=== PATIENT | female | born 1985 | race Caucasian/White ===

== ENCOUNTER 2019-06-06 04:35 | Emergency (ER) | payer SELFPAY ==
--- NOTE | 2019-06-06 05:13 | PDOC ---
History of Present Illness - General Stated Complaint: DIZZINESS Time Seen by Provider: 06/06/19 05:13 - History of Present Illness Initial Comments: 34 year old female with no PMH presenting with congestion, cough, and wheezing after her child was diagnosed with flu earlier today. She is concerned that she may have the flu as well. Her symptoms have lasted for nearly 3 days. She hast taken Motrin (last dos 2 hours prior) with good relief of her symptoms. She denies any chest pain, lightheadedness, or other symptoms. 06/06/19 06:13 Past History - Past Medical History Allergies/Adverse Reactions: Allergies Allergy/AdvReac Type Severity Reaction Status Date / Time No Known Allergies Allergy Verified 10/20/12 22:00 Home Medications: Ambulatory Orders No Home Medications 0 dose .ROUTE UTDICT 10/20/12 - Reproductive History (#): 1 Para: 0 - Psycho Social/Smoking Cessation Hx Smoking Status: No Smoking History: Never smoked Number of Cigarettes Smoked Daily: 0 Review of Systems - Review of Systems Constitutional: Yes: Fever, Loss of Appetite, Weakness. No: Chills, Diaphoresis HEENTM: No: Eye Pain, Blurred Vision, Tearing Respiratory: Yes: Cough. No: Shortness of Breath, Wheezing, Productive cough Cardiac (ROS): No: Chest Pain, Edema, Irregular Heart Rate, Chest Tightness ABD/GI: No: Constipated, Diarrhea, Nausea, Vomiting : No: Burning, Dysuria, Discharge Musculoskeletal: No: Back Pain, Joint Pain Integumentary: No: Bruising, Lesions, Lumps, Pallor Neurological: No: Headache, Numbness, Paresthesia Psychiatric: No: Anxiety, Depression Hematologic/Lymphatic: No: Anemia, Blood Clots *Physical Exam - Physical Exam General Appearance: Yes: Nourished, Appropriately Dressed. No: Apparent Distress HEENT: positive: EOMI, DEVORA, Normal Voice, TMs Normal, Pharynx Normal. negative : Normal ENT Inspection (congestion) Neck: positive: Trachea midline, Normal Thyroid, Supple. negative: Tender, Rigid Respiratory/Chest: positive: Lungs Clear, Normal Breath Sounds. negative: Chest Tender, Respiratory Distress, Accessory Muscle Use Cardiovascular: positive: Regular Rhythm, Regular Rate Gastrointestinal/Abdominal: positive: Normal Bowel Sounds, Flat, Soft. negative : Tender Lymphatic: negative: Adenopathy, Tenderness Musculoskeletal: positive: Normal Inspection. negative: Decreased Range of Motion Extremity: positive: Normal Capillary Refill, Normal Inspection, Normal Range of Motion. negative: Tender Integumentary: positive: Normal Color, Dry, Warm Neurologic: positive: Fully Oriented, Alert, Normal Mood/Affect, Normal Response , Motor Strength 5/5 Medical Decision Making - Medical Decision Making 34 year old female with no PMH presenting with flu like symptoms but flu swab negative. However, this is likely another untestable viral illness as patient is overall well appearing and there has been a short time course since onset of illness. VSS here and patient is doing well with Motrin. Will DC with Tylenol and Motrin use instructions. 06/06/19 06:43 Discharge - Discharge Information Problems reviewed: Yes Clinical Impression/Diagnosis: Congestion of nasal sinus Condition: Stable Disposition: HOME - Admission No - Follow up/Referral Referrals: [facility] [place] [Provider Group] - Patient Discharge Instructions Additional Instructions: Please take your Motrin and Tylenol every 4-6 hours as needed. Please see your PCP within one a week. Please return to the ED if you have new or worsening symptoms. - Post Discharge Activity
[2019-06-06 05:30] VITALS: BP 119/77; PULSE 100; TEMP 98.7; BMI 29.1
--- NOTE | 2019-06-06 05:34 | PDOC ---
Attending Attestation - Resident Resident Name: Meir Felix - ED Attending Attestation I have performed the following: I have examined & evaluated the patient, The case was reviewed & discussed with the resident, I agree w/resident's findings & plan - HPI HPI: 06/06/19 06:57 Pt's kids have the flu and pt thinks that she may have the flu. She is not febrile, but she has a cold and she has body aches. Pt appears well. - Physicial Exam PE: 06/06/19 06:58 Agree with resident exam Pt is achy and warm Heart and lungs clear Abd soft NT ND No flank pain, but pt complains od generalized muscle aches. Neuro intact No edema of legs HEENT normal - Medical Decision Making 06/06/19 06:58 Flu negatve Pt has a nahrn9r cold and she will be discharged home.
== END 2019-06-06 07:20 | disposition home or self-care (01) ==
LOC: JER 04:35
CPT/HCPCS: 87804; 99282-25

== ENCOUNTER 2021-07-19 21:06 | Emergency (ER) | payer OTHER ==
[2021-07-19] MEDS ORDERED: SODIUM CHLORIDE 1,000 ML IV STA (21:23)
[2021-07-19] MEDS ORDERED: ACETAMINOPHEN 1000 MG/100 ML BAG IVPB ONE (21:27)
[2021-07-19 21:35] VITALS: BP 119/73; PULSE 80; TEMP 98.7; BMI 29.3
[2021-07-19] MEDS ORDERED: ACETAMINOPHEN INJECTION 100 ML IVPB ONE (21:35)
[2021-07-19 22:12] LABS: EPITHELIAL CELLS FEW /hpf
[2021-07-19 22:15] LABS: ALBUMIN 4.1 g/dl (3.4-5.0); BILIRUBIN,TOTAL 0.6 mg/dl (0.2-1); CALCIUM 9.8 mg/dl (8.5-10); CREATININE 0.6 mg/dl (0.55-1.3); TOT PROT 7.5 g/dl (6.4-8.2)
[2021-07-19 22:40] LABS: BASO % 0.2 % (0-2.0); EOS % 2.5 % (0-4.5); HEMATOCRIT 36.3 % (32.4-45.2); HEMOGLOBIN 12.2 GM/dL (10.7-15.3); LYMPH % 31.3 % (8-40); MCHC 33.6 g/dl (32.0-36.0); MEAN CELL VOLUME 83.3 fl (80-96); MEAN PLT VOLUME 7.8 fl (7.5-11.1); MONO % 5.6 % (3.8-10.2); NEUT % 60.4 % (42.8-82.8); PLATELET COUNT 365 10^3/uL (134-434); RBC 4.36 M/mm3 (3.60-5.2); RDW 14.7 % (11.6-15.6); WHITE BLOOD COUNT 8.9 K/mm3 (4.0-10.0)
[2021-07-20 01:14] LABS: EPI CELLS 16 /uL (0-25.1); HYALINE CASTS 0 /uL (0-3.1); PH,URINE 6.5 (5.0-8.0); URINE APPEARANCE CLEAR; URINE BACTERIA 504 /uL (0-1359); URINE BILIRUBIN NEGATIVE (NEGATIVE); URINE COLOR YELLOW; URINE GLUCOSE (UA) NEGATIVE (NEGATIVE); URINE KETONE NEGATIVE (NEGATIVE); URINE LEUK ESTERASE 2+ (NEGATIVE); URINE NITRITE NEGATIVE (NEGATIVE); URINE PROTEIN NEGATIVE (NEGATIVE); URINE RBC 3 /uL (0-23.9); URINE UROBILINOGEN 0.2 mg/dL (0.2-1.0); URINE WBC 27 /uL (0-25.8)
== END 2021-07-19 23:50 | disposition home or self-care (01) ==
LOC: FER 21:06
PROC: 3E0333Z Introduction of Anti-inflammatory into Peripheral Vein, Percutaneous Approach (ICD-10-PCS; principal; 2021-07-19)
PROC: 3E0337Z Introduction of Electrolytic and Water Balance Substance into Peripheral Vein, Percutaneous Approach (ICD-10-PCS; 2021-07-19)
DX: G43.909 Migraine, unspecified, not intractable, without status migrainosus (principal)
CPT/HCPCS: 36415; 80053; 81003; 81015; 82550; 82553; 84484; 84703; 85025; 87086; 99284-25; C9803; J0131; U0003; U0005